=== PATIENT | female | born 2000 | race Caucasian/White ===

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

== ENCOUNTER 2022-04-04 00:03 | Emergency (ER) | payer OTHER ==
[~2022-04-04] VITALS: Ht 157.5 cm; Wt 59.1 kg
[2022-04-04 00:27] VITALS: TEMP 98
[2022-04-04] MEDS ORDERED: DESYREL 50MG50 MG PO (00:53)
[2022-04-04] MEDS ORDERED: SEROQUEL 2525 MG/TAB PO (00:53)
[2022-04-04] MEDS ORDERED: MINIPRESS 1M1 MG/CAP PO (00:53)
[2022-04-04 01:51] VITALS: BP 93/60; PULSE 51
== END 2022-04-04 01:51 | disposition home or self-care (01) ==
LOC: COL.ER 00:03
DX: S06.9X1A Unspecified intracranial injury with loss of consciousness of 30 minutes or less, initial encounter (principal); F17.290 Nicotine dependence, other tobacco product, uncomplicated; W01.198A Fall on same level from slipping, tripping and stumbling with subsequent striking against other object, initial encounter